=== PATIENT | male | born 1990 | race African-American/Black ===

== ENCOUNTER 2017-02-07 09:37 | Emergency (ER) | payer OTHER ==
[~2017-02-07] VITALS: Ht 188 cm; Wt 139.5 kg
[2017-02-07 09:38] VITALS: BP 156/84; PULSE 88; RESP 20; TEMP 98.8; O2SAT 97
--- NOTE | 2017-02-07 10:14 | PD ---
HPI Chief Complaint: Pain: Acute or Chronic Time Seen by Provider: 09:59 Travel History International Travel<30 days: No Contact w/Intl Traveler<30days: No Traveled to known affect area: No History of Present Illness HPI 26-year-old otherwise healthy male presents to the emergency room for evaluation of bilateral upper extremity pain since last night. Patient states he participated in football with friends last night which is not something he typically does. Since then he has had severe upper extremity pain, right worse than left. Pain is difficult to localize but stays around the elbow. Worse with any range of motion of the right arm. Denies any paresthesias. States he can move the left arm but he still has pain especially around the elbow. Patient reports he did get tackled and landed on his arms and football that he did not have immediate pain. He reports apple juice colored urine that is typical for him. He has not taken anything for symptoms. PFSH Past Medical History Diminished Hearing: No Social History Alcohol Use: Yes (OCCASIONALLY) Tobacco Use: Yes (OCC.) Substance Use: No Allergies-Medications (Allergen,Severity, Reaction): Coded Allergies: No Known Allergies (Verified , 01/17/14) Reported Meds & Prescriptions Reported Meds & Active Scripts Active No Active Prescriptions or Reported Medications Review of Systems Except as stated in HPI: all other systems reviewed are Neg Physical Exam Narrative GENERAL: Well-nourished, well-developed male in no acute distress. Afebrile. Ambulatory. SKIN: Focused skin assessment warm/dry. HEAD: Normocephalic. EYES: No scleral icterus. No injection or drainage. NECK: Supple, trachea midline. No JVD or lymphadenopathy. CARDIOVASCULAR: Regular rate and rhythm without murmurs, gallops, or rubs. RESPIRATORY: Breath sounds equal bilaterally. No accessory muscle use. MSK: Mild edema of the bilateral upper extremities, right worse than left. 2+ radial pulses bilaterally. Radial, ulnar, and median nerves intact bilaterally. Full range of motion of left upper extremity. Extreme limited range of motion of the right secondary to pain. No specific bony tenderness to palpation. Data Data Last Documented VS Vital Signs Date Time Temp Pulse Resp B/P (MAP) Pulse Ox O2 Delivery O2 Flow Rate FiO2 02/07/17 09:38 98.8 88 20 156/84 (108) 97 Room Air Orders Orders Creatine Kinase (Cpk) (02/07/17 10:11) Elbow, Complete (4 Vws) (02/07/17 ) Forearm (2vws) (02/07/17 ) Splint Or Brace Apply/Monitor (02/07/17 11:34) Acetamin-Hydrocod 325-5 Mg ([place] 5-325 (02/07/17 11:45) Labs Laboratory Tests Test 02/07/17 10:18 Total Creatine Kinase 234 U/L MDM Medical Decision Making Medical Screen Exam Complete: Yes Emergency Medical Condition: Yes Medical Record Reviewed: Yes Differential Diagnosis Rhabdomyolysis, fracture, sprain, strain, contusion Narrative Course 26-year-old otherwise healthy male presents to the emergency room for evaluation of bilateral upper extremity pain, right worse than left after playing football last night. States he did fall on his arms and supple but did not have immediate pain. Pain developed shortly afterward. It is difficult to localize. Physical exam reveals mild edema of the bilateral upper extremities. Both are neurovascularly intact with 2+ radial pulse and radial, ulnar, and median nerves intact. Patient has very limited range of motion of the right arm secondary to pain. X-rays of the right elbow and forearm were obtained and show probable nondisplaced radial head fracture given effusion. CK is unremarkable. Patient placed in sling and given Lortab for pain. Discharged with prescription for the same. Told to follow up with PCP or return for worsening symptoms. He understands and agrees to plan. Diagnosis Primary Impression: Radial head fracture, closed Qualified Codes: S52.124A - Nondisplaced fracture of head of right radius, initial encounter for closed fracture Referrals: Primary Care Physician Additional Instructions: Rest and drink plenty of fluids. Take Lortab as directed, as needed for pain. Do not drink alcohol or drive taking this medication. Take ibuprofen with food as directed, as needed for pain. Apply ice to the affected area for 20 minutes at a time, as needed for pain and swelling. Follow-up with a primary care physician. Return to the emergency room for worsening symptoms. Scripts No Active Prescriptions or Reported Meds Disposition: 01 DISCHARGE HOME Condition: Stable Alberta Durand Feb 07, 2017 10:14
--- NOTE | 2017-02-07 11:24 | RADRPT ---
EXAM DATE/TIME: 02/07/2017 10:34 [facility] COMPARISON: No previous studies available for comparison. INDICATIONS : Right medial elbow pain after falling while playing football yesterday. MEDICAL HISTORY : Smoker. Previous fracture in right hand. SURGICAL HISTORY : None. ENCOUNTER: Initial ACUITY: 2 days PAIN SCORE: 10/10 LOCATION: Right medial elbow. FINDINGS: Moderate joint effusion. Probable nondisplaced radial head fracture. Degenerative changes about the olecranon. CONCLUSION: Probable nondisplaced radial head fracture joint effusion Luis Carlos Mahoney MD FACR on February 07, 2017 at 11:21 Board Certified Radiologist. This report was verified electronically.
--- NOTE | 2017-02-07 11:25 | RADRPT ---
EXAM DATE/TIME: 02/07/2017 10:38 [facility] COMPARISON: No previous studies available for comparison. INDICATIONS : Right elbow pain after falling while playing football yesterday. MEDICAL HISTORY : Smoker. Previous fracture in right hand. SURGICAL HISTORY : None. ENCOUNTER: Initial ACUITY: 2 days PAIN SCORE: 10/10 LOCATION: Right medial elbow. FINDINGS: Moderate joint effusion with probable nondisplaced radial head fracture Degenerative changes about the olecranon CONCLUSION: Joint effusion, probable nondisplaced radial head fracture Luis Carlos Mahoney MD FACR on February 07, 2017 at 11:22 Board Certified Radiologist. This report was verified electronically.
[2017-02-07] MEDS ORDERED: HYDR-3516 PO ×2 (11:38→11:39)
[2017-02-07] MEDS ORDERED: ACETAMINOPHEN/HYDROcodone 325 MG/5 MG TAB PO ONE (11:45)
== END 2017-02-07 12:06 | disposition home or self-care (01) ==
LOC: NEPK 09:37
DX: S52.124A Nondisplaced fracture of head of right radius, initial encounter for closed fracture (principal); Y93.61 Activity, american tackle football; Z72.0 Tobacco use
CPT/HCPCS: 73080; 73090; 82550; 99284